=== PATIENT | female | born 1960 | race Caucasian/White ===

== ENCOUNTER 2018-11-25 21:06 | Emergency (ER) | payer OTHER ==
[~2018-11-25] VITALS: Ht 160 cm; Wt 65.3 kg
[2018-11-25] MEDS ORDERED: IBUPROFEN800 MG (21:41)
[2018-11-25] MEDS ORDERED: AMOX-CLAV 875-1 EACH (21:42)
[2018-11-25] MEDS ORDERED: BUTALB-ACETAMI1 EAC2 (21:42)
[2018-11-26] MEDS ORDERED: LEVAQUIN750 MG PO (02:21)
[2018-11-26] MEDS ORDERED: MEDROLPACK PO (02:21)
== END 2018-11-26 02:38 | disposition home or self-care (01) ==
LOC: ER 21:06
DX: H66.41 Suppurative otitis media, unspecified, right ear (principal); H70.891 Other mastoiditis and related conditions, right ear

== ENCOUNTER 2018-12-19 11:53 | Outpatient (CLI) | payer OTHER ==
[~2018-12-19] VITALS: Ht 157.5 cm; Wt 65.3 kg
[~2018-12-19 11:53] MED LIST: AMOX-CLAV 875-1 EACH; BUTALB-ACETAMI1 EAC2; IBUPROFEN800 MG; LEVAQUIN750 MG PO; MEDROLPACK PO
== END 2018-12-20 10:15 | disposition home or self-care (01) ==
LOC: OFIC 805 11:53
DX: H74.8X3 Other specified disorders of middle ear and mastoid, bilateral (principal); G51.0 Bell's palsy; H90.11 Conductive hearing loss, unilateral, right ear, with unrestricted hearing on the contralateral side; H90.5 Unspecified sensorineural hearing loss